=== PATIENT | female | born 1995 | race Two or more races ===

== ENCOUNTER 2016-07-18 18:22 | Emergency (ER) | payer BC, OTHER ==
[2016-07-18] MEDS ORDERED: DIPHENHYDRAMINE HCL 25 MG CAPSULE PO ONE (18:26)
--- NOTE | 2016-07-18 18:29 | ER Document Report ---
ED Medical Screen (RME) - General Stated Complaint: SWOLLEN RIGHT FOOT,RIGHT HAND PAIN Mode of Arrival: Ambulatory Information source: Patient Notes: pt presents with c/o swelling to right wrist, ankle, right side of face for 2 days. No obvious facial swelling noted. Denies injuries. Denies injury/trauma. Reports she thinks it is due to her allergies. Denies other symptoms. I have greeted and performed a rapid initial assessment of this patient. A comprehensive ED assessment and evaluation of the patient, analysis of test results and completion of the medical decision making process will be conducted by additional ED providers. TRAVEL OUTSIDE OF THE [place] IN LAST 30 DAYS: No - Related Data Allergies/Adverse Reactions: No Known Allergies Allergy (Verified 05/25/14 15:33) Past Medical History Pulmonary Medical History: Reports: Hx Asthma - Immunizations Hx Diphtheria, Pertussis, Tetanus Vaccination: Yes
[2016-07-18] MEDS ORDERED: DIPH/PERTUSS(ACELL)/TETANUS VAC/PF 0.5 ML SYR (>=10YO) IM ONE (22:25)
[2016-07-18 23:08] LABS: AMORPHOUS SEDIMENT,URINE TRACE /HPF; APPEARANCE,URINE CLOUDY; BILIRUBIN,URINE NEGATIVE (NEGATIVE); GLUCOSE, URINE NEGATIVE (NEGATIVE); KETONES,URINE NEGATIVE (NEGATIVE); LEUKOCYTE ESTERASE,URINE MODERATE (NEGATIVE); NITRITE,URINE NEGATIVE (NEGATIVE); PROTEIN,URINE NEGATIVE (NEGATIVE); URINE SPECIFIC GRAVITY 1.011
[2016-07-18 23:17] LABS: ABSOLUTE BASOPHILS # (AUTO) 0.1 10^3/uL (0.0-0.2); ABSOLUTE EOSINOPHILS # (AUTO) 0.3 10^3/uL (0.0-0.6); ABSOLUTE LYMPHOCYTES (AUTO) 1.9 10^3/uL (0.5-4.7); ABSOLUTE MONOCYTES (AUTO) 0.5 10^3/uL (0.1-1.4); ABSOLUTE NEUT (AUTO) 2.9 10^3/uL (1.7-8.2); EOSINOPHILS % (AUTO) 4.9 % (0-6); HEMATOCRIT 36.7 % (36.0-47.0); HEMOGLOBIN 12.7 g/dL (12.0-15.5); HGB HCT DIFFERENCE 1.4; MEAN CORPUSCULAR HEMOGLOBIN 30.3 pg (27.0-33.4); MEAN CORPUSCULAR HGB CONC 34.6 g/dL (32.0-36.0); MEAN CORPUSCULAR VOLUME 87 fl (80-97); MONOCYTES % (AUTO) 8.7 % (3-13); RED CELL DISTRIBUTION WIDTH 13.2 % (11.5-14.0); SEGMENTED NEUTROPHILS % (AUTO) 51.4 % (42-78); WHITE BLOOD COUNT 5.6 10^3/uL (4.0-10.5)
[2016-07-18 23:20] LABS: URINE BARBITURATES SCREEN NEGATIVE; URINE METHADONE SCREEN NEGATIVE; URINE OPIATES LOW UNCONFIRMED POSITIVE; URINE PHENCYCLIDINE SCREEN NEGATIVE
[2016-07-18 23:53] LABS: ALANINE AMINOTRANSFERASE 19 U/L (9-52); ALBUMIN 3.7 g/dL (3.5-5.0); ALKALINE PHOSPHATASE 55 U/L (38-126); ANION GAP 9 (5-19); ASPARTATE AMINO TRANSFERASE 21 U/L (14-36); BILIRUBIN,DIRECT 0.2 mg/dL (0.0-0.4); BILIRUBIN,TOTAL 0.6 mg/dL (0.2-1.3); BLOOD UREA NITROGEN 10 mg/dL (7-20); CALCIUM 9.3 mg/dL (8.4-10.2); CARBON DIOXIDE 27 mmol/L (22-30); CHLORIDE 106 mmol/L (98-107); CREATININE RESULT 0.57 mg/dL (0.52-1.25); GLUCOSE 107 mg/dL (75-110); POTASSIUM 4.4 mmol/L (3.6-5.0); TOTAL PROTEIN 6.7 g/dL (6.3-8.2)
--- NOTE | 2016-07-19 00:16 | ER Document Report ---
ED General - General Chief Complaint: Hand Swelling Stated Complaint: SWOLLEN RIGHT FOOT,RIGHT HAND PAIN Time seen by provider: 00:16 Mode of Arrival: Ambulatory Information source: Patient TRAVEL OUTSIDE OF THE [place] IN LAST 30 DAYS: No - HPI Patient complains to provider of: painful swelling to bilateral hands and feet, mainly right hand, dysuria Onset: Other - 2-3 days Onset/Duration: Gradual, Persistent Quality of pain: Achy, Fullness Severity: Moderate Pain Level: 3 Exacerbated by: Movement Relieved by: Denies Similar symptoms previously: No Recently seen / treated by doctor: No Notes: Patient is a 21-year-old female who presents to the emergency room complaining of right hand and foot swelling is been going on for the past few days, she states she's had left foot swelling over the past few days but that has since resolved, she denies any injury, does reported this achy and painful, no history of similar symptoms previously, she denies any fever or chills, no nausea, vomiting or diarrhea, last bowel movement was proximally one week ago which is typical for patient, she denies painful urination but does report frequency with urination, patient has a history of mental illness, has been taking Celexa and Klonopin for the past 1-1/2 months, 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, but reports she has not used any in the past 2 months, does admit to using marijuana on occasion - Related Data Allergies/Adverse Reactions: No Known Allergies Allergy (Verified 07/18/16 18:27) Past Medical History - General Information source: Patient - Social History Smoking Status: Current Every Day Smoker Chew tobacco use (# tins/day): No Frequency of alcohol use: None Drug Abuse: None Family History: Reviewed & Not Pertinent Pulmonary Medical History: Reports: Hx Asthma Renal/ Medical History: Denies: Hx Peritoneal Dialysis - Immunizations Hx Diphtheria, Pertussis, Tetanus Vaccination: Yes Review of Systems - Review of Systems Constitutional: No symptoms reported EENT: No symptoms reported Cardiovascular: No symptoms reported Respiratory: No symptoms reported Gastrointestinal: No symptoms reported Genitourinary: No symptoms reported Female Genitourinary: No symptoms reported Musculoskeletal: See HPI Skin: No symptoms reported Hematologic/Lymphatic: No symptoms reported Neurological/Psychological: No symptoms reported Physical Exam - Vital signs Vitals: Temp Pulse Resp BP Pulse Ox 98.2 F 86 16 105/59 L 96 07/18/16 18:27 07/18/16 18:27 07/18/16 18:27 07/18/16 18:27 07/18/16 18:27 Interpretation: Normal - General General appearance: Appears well, Alert - HEENT Head: Normocephalic, Atraumatic Eyes: Normal Pupils: PERRL - Respiratory Respiratory status: No respiratory distress Chest status: Nontender Breath sounds: Normal Chest palpation: Normal - Cardiovascular Rhythm: Regular Heart sounds: Normal auscultation Murmur: No - Abdominal Inspection: Normal Distension: No distension Bowel sounds: Normal Tenderness: Nontender Organomegaly: No organomegaly - Back Back: Normal, Nontender - Extremities General upper extremity: Normal ROM, Normal temperature General lower extremity: Nontender, Normal temperature, Normal weight bearing. No: Vee's sign Forearm: Other - On the left forearm there is brought and fresh appearing tattooing, several words are written on the ventral portion of the forearm, the wrist and the dorsal portion of the hand, there is no erythema or drainage, distal sensation and motor is intact with 2+ radial pulses and brisk capillary refill Hand: Other - Right hand with mild swelling, mild discoloration consistent with ecchymosis, several small scabbed puncture wounds, in the right antecubital space there are several ecchymotic and scabbed lesions consistent with IV punctures or IV track rangel, distal sensation and motor is intact with 2+ radial pulses and brisk capillary refill Foot: Normal - Neurological Neuro grossly intact: Yes Cognition: Normal Orientation: AAOx4 Ellie Coma Scale Eye Opening: Spontaneous Ellie Coma Scale Verbal: Oriented Ellie Coma Scale Motor: Obeys Commands [place] Coma Scale Total: 15 Speech: Normal Cranial nerves: Other - Patient has a slight right mouth droop, has piercings to left portion of the mouth, mother reports that the mouth droop is chronic and patient's baseline Motor strength normal: LUE, RUE, LLE, RLE Sensory: Normal - Psychological Associated symptoms: Normal mood, Flat affect - Skin Skin Temperature: Warm Skin Moisture: Dry Skin Color: Normal Course - Re-evaluation Re-evalutation: 07/19/16 01:00 Lab and imaging findings were discussed with patient and mother at bedside, she was placed on antibiotics for treatment of urinary tract infection, advised that a hepatitis panel was sent out, she was also advised to follow-up with her primary care provider in the next 1-2 days or return if symptoms worsen, patient and mother acknowledge understanding and agreement with this plan - Vital Signs Vital signs: Temp Pulse Resp BP Pulse Ox 97.9 F 70 18 124/72 98 07/19/16 01:24 07/19/16 01:24 07/19/16 01:24 07/19/16 01:24 07/19/16 01:24 - Laboratory Result Diagrams: 07/18/16 23:05 07/18/16 23:05 Laboratory results interpreted by me: 07/18/16 21:50 Urine Urobilinogen 2.0 H Ur Leukocyte Esterase MODERATE H - Diagnostic Test Radiology reviewed: Image reviewed, Reports reviewed Discharge - Discharge Clinical Impression: Peripheral edema Urinary tract infection Qualifiers: Urinary tract infection type: site unspecified Hematuria presence: without hematuria Qualified Code(s): N39.0 - Urinary tract infection, site not specified Condition: Stable Disposition: HOME, SELF-CARE Instructions: Urinary Tract Infection ([facility]), Cephalexin ([facility]), Edema, Peripheral ([facility]) Additional Instructions: Follow up with your primary care provider in one to 2 days. Return to the emergency room immediately if symptoms worsen or any additional concerns. Prescriptions: Cephalexin Monohydrate [Keflex 500 mg Capsule] 500 mg PO BID #20 capsule Referrals: KATIE RASHEED MD [Primary Care Provider] - Follow up as needed
[2016-07-19] MEDS ORDERED: CEPHALEXIN 500 MG CAPSULE PO ONE (00:59)
[2016-07-19 01:27] VITALS: BP 124/72
== END 2016-07-19 01:37 | disposition home or self-care (01) ==
LOC: ER 18:22
DX: N39.0 Urinary tract infection, site not specified (principal); R60.0 Localized edema; M79.89 Other specified soft tissue disorders; M79.641 Pain in right hand; Z79.899 Other long term (current) drug therapy; F17.200 Nicotine dependence, unspecified, uncomplicated
CPT/HCPCS: 36415; 80053; 80074; 80307; 81001; 81025; 85025; 90471; 90715; 99283

== ENCOUNTER 2018-06-22 17:36 | Emergency (ER) | payer OTHER ==
[2018-06-22 21:39] VITALS: BP 102/69
--- NOTE | 2018-06-22 22:13 | ER Document Report ---
Entered by MARIELA SWIFT SCRIBE 06/22/181941 Acting as scribe for:ELI PEREZ DO ED Substance Abuse / Acc. OD - General Chief Complaint: Possible Overdose Stated Complaint: POSSIBLE OVERDOSE Time Seen by Provider: 06/22/18 17:40 Primary Care Provider: KATIE RASHEED MD [Primary Care Provider] - Follow up in 3-5 days ( ) Notes: 23-year-old female [facility] pulse ox [facility]%, cyanotic, with minimal respirations. [place] fire department administered 2 mg of intranasal Narcan, EMS put an IO in her left tibia and gave 2 more mg of Narcan and the patient began to arouse. Patient states that she "snorted 2 bags of heroin" today. Patient states this was not an attempted suicide. TRAVEL OUTSIDE OF THE [place] IN LAST 30 DAYS: No - Related Data Allergies/Adverse Reactions: No Known Allergies Allergy (Verified 07/18/16 18:27) Past Medical History - General Information source: Patient - Social History Smoking Status: Current Every Day Smoker Frequency of alcohol use: None Drug Abuse: Heroin, Marijuana Lives with: Family Family History: Reviewed & Not Pertinent Patient has suicidal ideation: No Patient has homicidal ideation: No Pulmonary Medical History: Reports: Hx Asthma Surgical Hx: Negative - Immunizations Hx Diphtheria, Pertussis, Tetanus Vaccination: Yes Review of Systems - Review of Systems Constitutional: See HPI, Other - overdose of heroin EENT: No symptoms reported Cardiovascular: No symptoms reported Respiratory: No symptoms reported Gastrointestinal: No symptoms reported Genitourinary: No symptoms reported Female Genitourinary: No symptoms reported Musculoskeletal: No symptoms reported Skin: No symptoms reported Hematologic/Lymphatic: No symptoms reported Neurological/Psychological: See HPI, Numbness - lower extremities -: Yes All other systems reviewed and negative Physical Exam - Vital signs Vitals: Temp Pulse Resp BP Pulse Ox 98.8 F 80 24 H 123/92 H 100 06/22/18 17:41 06/22/18 17:41 06/22/18 17:41 06/22/18 17:41 06/22/18 17:41 Interpretation: Normal - General General appearance: Alert In distress: None - HEENT Head: Normocephalic, Atraumatic Eyes: Normal Pupils: PERRL - Respiratory Respiratory status: No respiratory distress Chest status: Nontender Breath sounds: Normal Chest palpation: Normal - Cardiovascular Rhythm: Regular Heart sounds: Normal auscultation Murmur: No - Abdominal Inspection: Normal Distension: No distension Bowel sounds: Normal Tenderness: Nontender Organomegaly: No organomegaly - Back Back: Normal, Nontender - Extremities General upper extremity: Normal inspection, Nontender, Normal color, Normal ROM, Normal temperature General lower extremity: Normal inspection, Nontender, Normal color, Normal ROM, Normal temperature, Normal weight bearing. No: Vee's sign - Neurological Neuro grossly intact: Yes Cognition: Normal Orientation: AAOx4 [place] Coma Scale Eye Opening: Spontaneous [place] Coma Scale Verbal: Oriented [place] Coma Scale Motor: Obeys Commands [place] Coma Scale Total: 15 Speech: Normal Motor strength normal: LUE, RUE, LLE, RLE Sensory: Normal - Psychological Associated symptoms: Normal affect, Normal mood - Skin Skin Temperature: Cool Skin Moisture: Diaphoretic Skin Color: Pale Course - Re-evaluation Re-evalutation: 06/22/18 22:12 Patient presents after being found in the car after heroin overdose. Patient is not suicidal. She is not trying to hurt herself. Patient was given Narcan prior to arrival. She has been watched in the emergency department for 4 hours. She is taking p.o., ambulating, and would like to go home. She does not want to stay to talk to anyone for mental health. Feels well. No complaints. Stable for discharge. Given Narcan prescription. - Vital Signs Vital signs: Temp Pulse Resp BP Pulse Ox 98.8 F 80 12 102/69 100 06/22/18 17:41 06/22/18 17:41 06/22/18 21:32 06/22/18 21:32 06/22/18 21:32 Discharge - Discharge Clinical Impression: Opiate overdose Qualifiers: Encounter type: initial encounter Injury intent: accidental or unintentional Qualified Code(s): T40.601A - Poisoning by unspecified narcotics, accidental (unintentional), initial encounter Condition: Stable Disposition: HOME, SELF-CARE Instructions: Instructions for Home Care Following a Drug Overdose ([facility]) Prescriptions: Naloxone HCl [Narcan] 4 mg NS PRN PRN #1 bottle PRN Reason: Referrals: KATIE RASHEED MD [Primary Care Provider] - Follow up in 3-5 days ( ) Scribe Attestation: 06/22/18 22:13 I personally performed the services described in the documentation, reviewed and edited the documentation which was dictated to the scribe in my presence, and it accurately records my words and actions. I personally performed the services described in the documentation, reviewed and edited the documentation which was dictated to the scribe in my presence, and it accurately records my words and actions.
--- NOTE | 2018-06-23 22:18 | EKG REPORT ---
SEVERITY:- OTHERWISE NORMAL ECG - SINUS RHYTHM BORDERLINE RIGHT AXIS DEVIATION : Confirmed by: Marvel Martinez 23-Jun-2018 22:17:57
== END 2018-06-22 21:40 | disposition home or self-care (01) ==
LOC: ER 17:36
DX: T40.1X1A Poisoning by heroin, accidental (unintentional), initial encounter (principal); Y92.810 Car as the place of occurrence of the external cause; F12.10 Cannabis abuse, uncomplicated; F17.200 Nicotine dependence, unspecified, uncomplicated; J45.909 Unspecified asthma, uncomplicated; R20.0 Anesthesia of skin
CPT/HCPCS: 93005; 93010; 99284

== ENCOUNTER 2019-01-30 21:56 | Emergency (ER) | payer SELFPAY ==
[2019-01-30] MEDS ORDERED: ASPIRIN 81 MG TABLET, CHEWABLE PO ONE (22:18)
[2019-01-30 23:18] LABS: ABSOLUTE EOSINOPHILS # (AUTO) 0.2 10^3/uL (0.0-0.6); ABSOLUTE LYMPHOCYTES (AUTO) 1.6 10^3/uL (0.5-4.7); ABSOLUTE MONOCYTES (AUTO) 0.3 10^3/uL (0.1-1.4); ABSOLUTE NEUT (AUTO) 3.1 10^3/uL (1.7-8.2); BASOPHILS % (AUTO) 0.7 % (0-2); HEMATOCRIT 39.6 % (36.0-47.0); HEMOGLOBIN 13.5 g/dL (12.0-15.5); LYMPHOCYTES % (AUTO) 30.5 % (13-45); MEAN CORPUSCULAR HEMOGLOBIN 29.7 pg (27.0-33.4); MEAN CORPUSCULAR HGB CONC 34.2 g/dL (32.0-36.0); MEAN CORPUSCULAR VOLUME 87 fl (80-97); MONOCYTES % (AUTO) 6.1 % (3-13); PLATELET COUNT 261 10^3/uL (150-450); RED BLOOD COUNT 4.56 10^6/uL (3.72-5.28); RED CELL DISTRIBUTION WIDTH 13.1 % (11.5-14.0); SEGMENTED NEUTROPHILS % (AUTO) 58.7 % (42-78); TOTAL CELLS COUNTED % (AUTO) 100 %; WHITE BLOOD COUNT 5.4 10^3/uL (4.0-10.5)
[2019-01-30 23:32] LABS: ALBUMIN 3.8 g/dL (3.5-5.0); ALKALINE PHOSPHATASE 63 U/L (38-126); ANION GAP 6 (5-19); ASPARTATE AMINO TRANSFERASE 30 U/L (14-36); BILIRUBIN,DIRECT 0.1 mg/dL (0.0-0.4); BILIRUBIN,TOTAL 0.5 mg/dL (0.2-1.3); BLOOD UREA NITROGEN 12 mg/dL (7-20); CALCIUM 9.2 mg/dL (8.4-10.2); CARBON DIOXIDE 33 mmol/L (22-30); CHLORIDE 99 mmol/L (98-107); CREATINE KINASE 78 U/L (30-135); GLUCOSE 143 mg/dL (75-110); POTASSIUM 4.7 mmol/L (3.6-5.0); TOTAL PROTEIN 7.1 g/dL (6.3-8.2)
--- NOTE | 2019-01-30 23:32 | RADIOLOGY REPORT (SQ) ---
EXAM DESCRIPTION: XR CHEST 2 VIEWS COMPLETED DATE/TME: 01/30/2019 00:00 CLINICAL HISTORY: 23 years, Female, chest pain and diff breathing x 1 wk COMPARISON: None. NUMBER OF VIEWS: Two TECHNIQUE: Frontal and lateral radiographs of the chest were obtained. LIMITATIONS: None. FINDINGS: Cardiac and mediastinal contours are normal in appearance. Lungs are clear. No pleural effusion or pneumothorax. IMPRESSION: No acute disease. copyright 2010 [employer]- All Rights Reserved
[2019-01-31] MEDS ORDERED: DEXAMETHASONE SOD PHOS INJ 10 MG/1 ML VIAL IM ONE (01:18)
[2019-01-31] MEDS ORDERED: DIPHENHYDRAMINE HCL 50 MG/ML VIAL IM ONE (01:18)
[2019-01-31] MEDS ORDERED: KETOROLAC TROMETHAMINE 60 MG/2 ML SDV IM ONE (01:18)
[2019-01-31] MEDS ORDERED: ALBUTEROL SULFATE HFA (90 MCG/PUFF) 8 GM MDI (1 MDI/ER DISP) IH ONE (01:18)
[2019-01-31] MEDS ORDERED: PROCHLORPERAZINE EDISYLATE INJ 10 MG/2 ML VIAL IM ONE (01:18)
--- NOTE | 2019-01-31 01:27 | ER Document Report ---
ED General - General Chief Complaint: Chest Pain Stated Complaint: CHEST PAIN Time Seen by Provider: 01/31/19 01:05 Primary Care Provider: KATIE RASHEED MD [Primary Care Provider] - Follow up as needed Notes: 23 year old female with a remote history of asthma and a history of twice monthly headaches presents emergency department complaining of shortness of breath and chest pain for the past week. Denies any cough, denies any dyspnea on exertion or change when she walks. States that the pain is only there when she takes deep breath and it is an aching throbbing type of pain and it also just feels like she cannot take a full deep breath. She has never had anything like this before. She also complains of a throbbing headache to her bilateral temples for the past few days. States she gets headaches like these twice a month. Is associated with photophobia but denies any phonophobia, nausea, vomiting, diarrhea, fevers, blurry vision, neck pain or trauma. Admits occasionally injecting heroin, last time she used was over a week ago. TRAVEL OUTSIDE OF THE [place] IN LAST 30 DAYS: No - Related Data Allergies/Adverse Reactions: No Known Allergies Allergy (Verified 07/18/16 18:27) Past Medical History - General Information source: Patient - Social History Smoking Status: Current Every Day Smoker Chew tobacco use (# tins/day): No Frequency of alcohol use: None Drug Abuse: Heroin Family History: Reviewed & Not Pertinent Patient has suicidal ideation: No Patient has homicidal ideation: No Pulmonary Medical History: Reports: Hx Asthma Renal/ Medical History: Denies: Hx Peritoneal Dialysis - Immunizations Hx Diphtheria, Pertussis, Tetanus Vaccination: Yes Review of Systems - Review of Systems Constitutional: No symptoms reported EENT: See HPI - Photophobia Cardiovascular: See HPI Respiratory: See HPI Gastrointestinal: No symptoms reported Genitourinary: No symptoms reported Neurological/Psychological: See HPI - Headache -: Yes All other systems reviewed and negative Physical Exam - Vital signs Vitals: Temp Pulse Resp BP Pulse Ox 97.7 F 67 16 118/54 L 99 01/30/19 22:06 01/30/19 22:06 01/30/19 22:06 01/30/19 22:06 01/30/19 22:06 Interpretation: Normal - Notes Notes: GENERAL: Alert, interacts well. Mildly photophobic, however lights are on in the TV is on quite loudly and it does not seem to be bothering her. HEAD: Normocephalic, atraumatic EYES: Pupils equal, round and reactive to light, extraocular movements intact. ENT: Oral mucosa moist, tongue midline. Nares patent, no nasal septal hematoma, TMs intact. NECK: Full range of motion, supple, trachea midline. LUNGS: Mild expiratory wheezes, no acute distress. HEART: Regular rate and rhythm, no murmurs, gallops, rubs. ABDOMEN: Soft, nontender, nondistended, bowel sounds present in all 4 quadrants. EXTREMITIES: Moves all 4 extremities spontaneously, no edema, radial and dorsalis pedis pulses 2/4 bilaterally. No cyanosis. NEUROLOGICAL: Alert and oriented x3, normal speech, cranial nerves II through XII grossly intact, biceps and patellar DTRs 2+ bilaterally. PSYCH: Normal mood, normal affect. SKIN: Warm, Dry, bruising and track rangel noted to the bilateral upper extremities, no surrounding erythema. Course - Re-evaluation Re-evalutation: 01/31/19 01:27 CBC unremarkable, CMP shows elevated glucose of 143, this is nonfasting, otherwise unremarkable, troponin is undetectable, chest x-ray unremarkable, EKG is nonischemic. Suspect pleurisy as well as migraine, no evidence of meningitis, no risk factors for PE, no tachycardia. Patient has not had sex with a man in over 6 months, no need to check test. Patient will be treated with Toradol, Compazine, Benadryl and Decadron as well as an albuterol inhaler. Discharged home on anti-inflammatories. Counseled on not using drugs, admits to using heroin over a week ago. Encouraged to stay clean and not use any more injectable drugs. 01/31/19 01:28 - Vital Signs Vital signs: Temp Pulse Resp BP Pulse Ox 97.7 F 67 16 118/54 L 99 01/30/19 22:06 01/30/19 22:06 01/30/19 22:06 01/30/19 22:06 01/30/19 22:06 - Laboratory Result Diagrams: 01/30/19 22:50 01/30/19 22:50 Laboratory results interpreted by me: 01/30/19 22:50 Carbon Dioxide 33 H Glucose 143 H - EKG Interpretation by Me Additional EKG results interpreted by me: 01/31/19 01:28 EKG shows sinus bradycardia cardia at a rate of 56, normal axis, normal intervals, no ST segment elevations or depressions, there are T wave inversions noted in V2 and aVL per my interpretation. Discharge - Discharge Clinical Impression: Pleuritic chest pain, Temporal headache, Wheezing Condition: Stable Disposition: HOME, SELF-CARE Additional Instructions: Please return for worsening headache, fever, neck pain, blurry vision or any new or concerning symptoms. Pleurisy Your chest pain has been diagnosed as pleuritis (pleurisy). This is an inflammation of the surface of the lung tissue. It can be caused by a virus or, occasionally, old scar tissue. It is painful but, for the most part, not a serious problem. This pain is usually made worse by deep breathing, coughing, or sudden movements of the upper body or arms. The treatment is relief of symptoms. It includes rest, antiinflammatory medication, and pain medicine. Resolution of the pain is usually rapid once antiinflammatory medication is started. Warning signs of a more serious problem include: a fever, shortness of breath, pain that radiates to your jaw, shoulders or arms, or coughing up bloody sputum. If any of these symptoms occur, call the physician at once. Please use ibuprofen (Motrin or Advil) 600-800 mg every 8 hours as needed for pain or fever. You may also use acetaminophen (Tylenol) 1000 mg every 4-6 hours as needed for pain or fever. Please be aware that many medications contain acetaminophen, do not exceed a total of 1000 mg of acetaminophen every 6 hours. Please use the inhaler 2 puffs every 4 hours as needed for wheezing or pain in your chest or shortness of breath. Prescriptions: Prednisone [Deltasone 20 mg Tablet] 2 tab PO DAILY 4 Days tablet Forms: Return to Work Referrals: KATIE RASHEED MD [Primary Care Provider] - Follow up as needed
[2019-01-31 02:13] VITALS: BP 120/60
--- NOTE | 2019-01-31 07:54 | EKG REPORT ---
SEVERITY:- NORMAL ECG - SINUS RHYTHM : Confirmed by: Bebo Oglesby MD 31-Jan-2019 07:54:20
== END 2019-01-31 02:11 | disposition home or self-care (01) ==
LOC: ER 21:56
DX: R07.81 Pleurodynia (principal); R51 Headache; J45.909 Unspecified asthma, uncomplicated; R06.02 Shortness of breath; F11.10 Opioid abuse, uncomplicated
CPT/HCPCS: 93005; 99285; 96372; 36415; 82550; 85025; 80053; 84484; 71046; 93010; J1200; J1885; J0780; J1100; J3490

== ENCOUNTER 2019-04-03 09:45 | Emergency (ER) | payer SELFPAY ==
[2019-04-03] MEDS ORDERED: IPRATROPIUM/ALBUTEROL 0.5-2.5 MG/3 ML AMPUL NEB ONE (10:40)
[2019-04-03] MEDS ORDERED: ONDANSETRON 4 MG TAB.RAPDIS PO ONE (10:40)
--- NOTE | 2019-04-03 10:41 | ER Document Report ---
HPI - HPI Patient complains to provider of: Cold symptoms Time Seen by Provider: 04/03/19 10:38 Onset/Duration: Persistent Quality of pain: Achy Pain Level: 3 Context: Patient presents complaining of cough congestion and sore throat for the past 3 days. Patient also complains of nausea. No fever, vomiting or diarrhea. Associated Symptoms: Nonproductive cough, Nausea, Rhinnorhea, Sore throat. denies: Chest pain, Chills, Earache, Fever, Headache, Vomiting Exacerbated by: Denies Relieved by: Denies Similar symptoms previously: Yes Recently seen / treated by doctor: No - ROS ROS below otherwise negative: Yes Systems Reviewed and Negative: Yes All other systems reviewed and negative - CONSTITUTIONAL Constitutional: DENIES: Fever, Chills - EENT EENT: REPORTS: Sore Throat, Nasal Drainage-Clear, Congestion - NEURO Neurology: DENIES: Headache - RESPIRATORY Respiratory: REPORTS: Coughing. DENIES: Trouble Breathing - GASTROINTESTINAL Gastrointestinal: DENIES: Abdominal Pain, Nausea, Patient vomiting, Diarrhea - REPRODUCTIVE Reproductive: DENIES: : - MUSCULOSKELETAL Musculoskeletal: DENIES: Extremity pain, Back Pain, Neck Pain - DERM Skin Color: Normal Skin Problems: None Past Medical History - General Information source: Patient - Social History Smoking Status: Current Every Day Smoker Chew tobacco use (# tins/day): No Frequency of alcohol use: None Drug Abuse: None Occupation: Foodservice Family History: Reviewed & Not Pertinent Patient has suicidal ideation: No Patient has homicidal ideation: No Pulmonary Medical History: Reports: Hx Asthma Renal/ Medical History: Denies: Hx Peritoneal Dialysis Surgical Hx: Negative - Immunizations Hx Diphtheria, Pertussis, Tetanus Vaccination: Yes Vertical Provider Document - CONSTITUTIONAL Agree With Documented VS: Yes Exam Limitations: No Limitations General Appearance: WD/WN, No Apparent Distress - INFECTION CONTROL TRAVEL OUTSIDE OF THE [place] IN LAST 30 DAYS: No - HEENT HEENT: Atraumatic, Normocephalic, Pharyngeal Tenderness, Pharyngeal Erythema. negative: Pharyngeal Exudate, Tympanic Membrane Red Notes: clear rhinorrhea - NECK Neck: Normal Inspection, Supple. negative: Lymphadenopathy-Left, Lymphadenopathy-Right - RESPIRATORY Respiratory: No Respiratory Distress, Chest Non-Tender. negative: Rales, Rhonchi, Wheezing - CARDIOVASCULAR Cardiovascular: Regular Rate, Regular Rhythm, No Murmur - BACK Back: Normal Inspection - MUSCULOSKELETAL/EXTREMETIES Musculoskeletal/Extremeties: VIRAJ MORGAN - NEURO Level of Consciousness: Awake, Alert, Appropriate Motor/Sensory: No Motor Deficit - DERM Integumentary: Warm, Dry, No Rash Course - Re-evaluation Re-evalutation: 04/03/19 Respirations even unlabored. Chest x-ray reviewed, no concern for pneumonia or pneumothorax. Patient nontoxic in appearance. Good return precautions discussed. Patient verbalized understanding and is agreeable with discharge pl an of care. - Vital Signs Vital signs: Temp Pulse Resp BP Pulse Ox 98.1 F 87 16 139/88 H 100 04/03/19 10:34 04/03/19 10:34 04/03/19 10:34 04/03/19 10:34 04/03/19 10:34 - Laboratory Laboratory results interpreted by me: 04/03/19 12:04 Labs- Entire Visit 04/03/19 11:02 Group A Strep Rapid NEGATIVE - Diagnostic Test Radiology reviewed: Reports reviewed Discharge - Discharge Clinical Impression: Sore throat Upper respiratory infection Qualifiers: URI type: unspecified URI Qualified Code(s): J06.9 - Acute upper respiratory infection, unspecified Condition: Stable Disposition: HOME, SELF-CARE Instructions: Sore Throat ([facility]), Upper Respiratory Illness ([facility]) Additional Instructions: Return immediately for any new or worsening symptoms Followup with your primary care provider, call tomorrow to make a followup appointment Throat culture is pending, we will call if you need any different treatment Prescriptions: Guaifenesin/Pseudoephedrne HCl [Mucinex D ER 1,200-120 mg Tab] 1 each PO Q12 PRN #12 tab.er.12h PRN Reason: Naproxen [Naprosyn 250 Nmg Tablet] 1 tab PO BID #14 tablet Forms: Return to Work Referrals: KATIE RASHEED MD [Primary Care Provider] - Follow up tomorrow
--- NOTE | 2019-04-03 11:42 | RADIOLOGY REPORT (SQ) ---
EXAM DESCRIPTION: CHEST 2 VIEWS COMPLETED DATE/TIME: 04/03/2019 11:19 am REASON FOR STUDY: cough COMPARISON: 01/30/2019 TECHNIQUE: Frontal and lateral radiographic views of the chest acquired. NUMBER OF VIEWS: Two view. LIMITATIONS: None. FINDINGS: LUNGS AND PLEURA: No opacities, masses or pneumothorax. No pleural effusion. MEDIASTINUM AND HILAR STRUCTURES: No masses or contour abnormalities. HEART AND VASCULAR STRUCTURES: Heart normal size. No evidence for failure. BONES: No acute findings. HARDWARE: None in the chest. OTHER: No other significant finding. IMPRESSION: NO SIGNIFICANT RADIOGRAPHIC FINDING IN THE CHEST. TECHNICAL DOCUMENTATION: JOB ID: [id number] [employer]- All Rights Reserved Reading location - IP/workstation name: [email or web address]
[2019-04-03 12:22] VITALS: BP 112/49
== END 2019-04-03 12:22 | disposition home or self-care (01) ==
LOC: ER 09:45
DX: J06.9 Acute upper respiratory infection, unspecified (principal); R05 Cough; J02.9 Acute pharyngitis, unspecified; R11.0 Nausea; J34.89 Other specified disorders of nose and nasal sinuses; F17.200 Nicotine dependence, unspecified, uncomplicated; J45.909 Unspecified asthma, uncomplicated
CPT/HCPCS: 94640; 99283; 87070; 87880; 71046; S0119; J7620

== ENCOUNTER 2019-11-01 20:40 | Emergency (ER) | payer SELFPAY ==
[2019-11-01 21:16] VITALS: BP 111/59
[2019-11-01] MEDS ORDERED: DIPHENHYDRAMINE HCL 50 MG CAPSULE PO ONE (22:23)
[2019-11-01] MEDS ORDERED: SULFAMETHOXAZOLE/TRIMETHOPRIM 800-160 MG TABLET PO ONE (22:23)
--- NOTE | 2019-11-01 22:27 | ER Document Report ---
ED General - General Chief Complaint: Insect Bite Stated Complaint: POSSIBLE BUG BITE ON FOOT Primary Care Provider: KATIE RASHEED MD [Primary Care Provider] - Follow up as needed Notes: Patient is a 24-year-old female with no reported past medical history presents to the emergency department with chief complaint of swollen area to the left dorsal foot. [place] [employer] [place]formerly [employer] She thinks she might of been bitten by a spider. She states that she saw some spiders near the area where she was working but did not see anything bite her specifically. She states yesterday the area was much worse. She presents with a picture on her phone showing significant improvement from yesterday to today. She states the area is still slightly swollen and tender to palpation. Denies any drainage, expanding cellulitis or proximal streaking. No fever, chills or night sweats. TRAVEL OUTSIDE OF THE [place] IN LAST 30 DAYS: No - Related Data Allergies/Adverse Reactions: No Known Allergies Allergy (Verified 04/03/19 10:34) Past Medical History - Social History Smoking Status: Current Every Day Smoker Chew tobacco use (# tins/day): No Frequency of alcohol use: None Drug Abuse: None Family History: Reviewed & Not Pertinent Pulmonary Medical History: Reports: Hx Asthma Renal/ Medical History: Denies: Hx Peritoneal Dialysis - Immunizations Hx Diphtheria, Pertussis, Tetanus Vaccination: Yes Review of Systems - Review of Systems Notes: As per HPI otherwise negative Physical Exam - Vital signs Vitals: Temp Pulse Resp BP Pulse Ox 98.5 F 75 16 111/59 L 100 11/01/19 21:15 11/01/19 21:15 11/01/19 21:15 11/01/19 21:15 11/01/19 21:15 - General General appearance: Appears well, Alert In distress: None - Respiratory Respiratory status: No respiratory distress Chest status: Nontender Breath sounds: Normal Chest palpation: Normal - Cardiovascular Rhythm: Regular Heart sounds: Normal auscultation - Extremities Foot: Other - Slight tenderness with faint erythema to the mid dorsum of the left foot. Tender to the same area. No expanding cellulitis or proximal streaking. No proximal regional lymphadenopathy. Full passive range of motion of the foot. 2+ DP/PT of the foot. Good capillary refill distally. Gait is only slightly limited by pain. - Neurological Neuro grossly intact: Yes Cognition: Normal Orientation: AAOx4 - Psychological Associated symptoms: Normal affect, Normal mood - Skin Skin Temperature: Warm Skin Moisture: Dry Skin Color: Other - Normal except affected area of the foot as described Course - Re-evaluation Re-evalutation: 11/01/19 22:27 Patient with a history and physical consistent with a probable localized allergic reaction to possible insect envenomation or sting versus acute improving bacterial infection. She will take antihistamines as discussed, use ice and elevation and we will start on a short course of Bactrim. Counseled her regarding the importance of outpatient follow-up and advised she return here or any ER immediately with any new, persistent or worsening symptoms. She verbalized understood and agreed. Patient verbalized no chance of . - Vital Signs Vital signs: Temp Pulse Resp BP Pulse Ox 98.5 F 75 16 111/59 L 100 11/01/19 22:18 11/01/19 21:15 11/01/19 21:15 11/01/19 21:15 11/01/19 21:15 Discharge - Discharge Clinical Impression: Cellulitis Qualifiers: Site of cellulitis: unspecified site Qualified Code(s): L03.90 - Cellulitis, unspecified Local reaction to insect sting Qualifiers: Encounter type: initial encounter Injury intent: accidental or unintentional Qualified Code(s): T63.481A - Toxic effect of venom of other arthropod, accidental (unintentional), initial encounter Condition: Stable Disposition: HOME, SELF-CARE Instructions: Swollen Insect Bite or Sting ([facility]) Additional Instructions: Follow-up with your regular doctor in 2 to 3 days for reevaluation. Return here or any ER immediately with any new, persistent or worsening symptoms. Prescriptions: Sulfamethoxazole/Trimethoprim [Bactrim Ds Tablet] 1 each PO BID #14 tablet Referrals: KATIE RASHEED MD [Primary Care Provider] - Follow up as needed
== END 2019-11-01 22:30 | disposition home or self-care (01) ==
LOC: ER 20:40
DX: W57.XXXA Bitten or stung by nonvenomous insect and other nonvenomous arthropods, initial encounter (principal); L03.90 Cellulitis, unspecified; F17.200 Nicotine dependence, unspecified, uncomplicated; J45.909 Unspecified asthma, uncomplicated
CPT/HCPCS: 99281

== ENCOUNTER 2019-12-11 02:40 | Emergency (ER) | payer SELFPAY ==
--- NOTE | 2019-12-11 05:43 | ER Document Report ---
Entered by BLAKE SHARIF SCRIBE 12/11/19 0506 Acting as scribe for:JOHN LOPEZ IV, MD ED General - General Mode of Arrival: Ambulatory Information source: Patient TRAVEL OUTSIDE OF THE [place] IN LAST 30 DAYS: No <JOHN LOPEZ IV - Last Filed: 12/11/19 05:43> <JOSE VIRAMONTES - Last Filed: 12/11/19 08:40> - General Chief Complaint: Overdose Stated Complaint: BEHAVIORAL ISSUES Time Seen by Provider: 12/11/19 05:01 Primary Care Provider: KATIE RASHEED MD [Primary Care Provider] - Follow up as needed Notes: This 24 year old female patient brought in by [facility] presents to the ED today for medical clearance after an accidental heroin overdose that occurred prior to arrival. [facility] was called by the patient's family. Dr. Herndon has already consulted with the patient. Patient denies suicidal or homicidal ideation. (JOHN LOPEZ IV) - Related Data Allergies/Adverse Reactions: No Known Allergies Allergy (Verified 04/03/19 10:34) Past Medical History - General Information source: [facility] Records - Social History Smoking Status: Current Every Day Smoker Cigarette use (# per day): Yes Chew tobacco use (# tins/day): No Smoking Education Provided: No Frequency of alcohol use: None Drug Abuse: Heroin Family History: Reviewed & Not Pertinent Patient has suicidal ideation: No Patient has homicidal ideation: No Pulmonary Medical History: Reports: Hx Asthma - Immunizations Hx Diphtheria, Pertussis, Tetanus Vaccination: Yes <JOHN LOPEZ IV - Last Filed: 12/11/19 05:43> Review of Systems - Review of Systems Constitutional: See HPI, Other - Accidental heroin overdose EENT: No symptoms reported Cardiovascular: No symptoms reported Respiratory: No symptoms reported Gastrointestinal: No symptoms reported Genitourinary: No symptoms reported Female Genitourinary: No symptoms reported Musculoskeletal: No symptoms reported Skin: No symptoms reported Hematologic/Lymphatic: No symptoms reported Neurological/Psychological: See HPI. denies: Homicidal ideation, Suicidal ideation -: Yes All other systems reviewed and negative <JOHN LOPEZ IV - Last Filed: 12/11/19 05:43> Physical Exam - General General appearance: Other - Somnolent, but easily arousable and subsequently alert In distress: None - HEENT Head: Normocephalic, Atraumatic Eyes: Normal Pupils: PERRL - Respiratory Respiratory status: No respiratory distress Chest status: Nontender Breath sounds: Normal Chest palpation: Normal - Cardiovascular Rhythm: Regular Heart sounds: Normal auscultation Murmur: No Friction rub: No Gallop: None auscultated - Abdominal Inspection: Normal Distension: No distension Bowel sounds: Normal Tenderness: Nontender - Abdomen soft Organomegaly: No organomegaly - Back Back: Normal, Nontender - Extremities General upper extremity: Normal inspection General lower extremity: Normal inspection - Neurological Neuro grossly intact: Yes - Psychological Associated symptoms: Normal affect, Normal mood - Skin Skin Temperature: Warm Skin Moisture: Dry Skin Color: Normal <JOHN LOPEZ IV - Last Filed: 12/11/19 05:43> - Vital signs Vitals: Temp Pulse Resp BP Pulse Ox 101.3 F H 99 20 134/75 H 100 12/11/19 02:48 12/11/19 02:48 12/11/19 02:48 12/11/19 02:48 12/11/19 02:48 Course <JOHN LOPEZ IV - Last Filed: 12/11/19 05:43> - Laboratory Result Diagrams: 12/11/19 05:50 12/11/19 05:50 <JOSE VIRAMONTES - Last Filed: 12/11/19 08:40> - Re-evaluation Re-evalutation: 12/11/19 08:38 Patient was seen overnight primarily by Dr. John Lopez after what appears to be an accidental drug overdose. Her medical evaluation here has been negativ e. She is now awake and alert and drinking fluids without difficulty. She is able to stand and ambulate without assistance. She denies any suicidal/homicidal intent or any hallucinations at this time. She wishes to be discharged. I believe this is appropriate. She has been offered outpatient d rug detox resources. Findings, clinical impression and plan of treatment have been discussed with p atient/family. Understanding of current findings and recommendations has been acknowledged by them and there is agreement regarding disposition and follow-up. (JOSE VIRAMONTES) - Vital Signs Vital signs: Temp Pulse Resp BP Pulse Ox 98.7 F 99 20 134/75 H 100 12/11/19 05:46 12/11/19 02:48 12/11/19 02:48 12/11/19 02:48 12/11/19 02:48 - Laboratory Laboratory results interpreted by me: 12/11/19 12/11/19 12/11/19 05:50 05:50 06:10 Hct 35.6 L Seg Neutrophils % 79.2 H Sodium 136.4 L Anion Gap 3 L Glucose 123 H AST 40 H ALT 56 H Albumin 3.4 L Ur Leukocyte Esterase LARGE H - EKG Interpretation by Me Additional EKG results interpreted by me: 12/11/19 05:44 EKG obtained on 12/11/2019 at 0533 hrs. was interpreted by this MD. Findings: Normal sinus rhythm, rate 91, normal axis, P waves preceding QRS complexes, QRS complexes appear narrow, there are no obvious patterns of ST segment elevation or depression present to suggest acute myocardial ischemia or infarction. Impression: Normal sinus rhythm with nonspecific ST segments. (JOHN LOPEZ IV) Discharge <JOHN LOPEZ IV - Last Filed: 12/11/19 05:43> <JOSE VIRAMONTES - Last Filed: 12/11/19 08:40> - Discharge Clinical Impression: Accidental drug overdose Qualifiers: Encounter type: initial encounter Qualified Code(s): T50.901A - Poisoning by unspecified drugs, medicaments and biological substances, accidental (unintentional), initial encounter Condition: Stable Disposition: HOME, SELF-CARE Additional Instructions: Return to the Emergency Department without delay if any worse. HOME CARE INSTRUCTIONS & INFORMATION: Thank you for choosing us for your medical needs. We hope you're satisfied with the care you received. After you leave, you must properly care for your problem and, at the same time, observe its progress. Any condition can change. Some illnesses can change rapidly over hours or days. If your condition worsens, return to the Emergency Department or see your physician promptly. ABOUT YOUR X-RAYS AND EKG'S: If you had an EKG or X-rays taken, they have been read by the Emergency Physician. The X-rays and EKG's will also be read by a Radiologist or Motor Operator within 24 hours. If discrepancies are noted, you will be notified by telephone. Please be certain the ED has a correct telephone number & address where you can be reached. Also, realize that some fractures or abnormalities do not show up on initial X-rays. If your symptoms continue, see your physician. ABOUT YOUR LABORATORY TEST: If you had laboratory tests, the results have been reviewed by the Emergency Physician. Some test results (for example cultures) may not be available for several days. You will be contacted if any test result shows you need additional treatment. Please be certain the ED has a correct telephone number and address where you can be reached. ABOUT YOUR MEDICATIONS: You will receive instructions on how to take your medicine on the prescription label you receive. Additional information may be provided by the Pharmacy. If you have questions afterwards, call the ED for clarification or further instructions. Some prescribed medications may cause drowsiness. Do not perform tasks such as driving a car or operating machinery without consulting your Pharmacist. If you feel you need a refill of pain medication, your condition will need re-evaluation. Please do not call for a refill of any medication. ABOUT YOUR SIGNATURE: Signature of this document acknowledges to followin. Understanding that you received emergency treatment and that you may be released before al medical problems are known or treated. Please be certain the ED has a correct phone number & address where you can be reached. 2. Acknowledgement that you will arrange for follow-up care as recommended. 3. Authorization for the Emergency Physician to provide information to your follow-up Physician in order to maximize your care. AT ANY TIME, IF YOUR SYMPTOMS CHANGE SIGNIFICANTLY OR WORSEN OR YOU DEVELOP NEW SYMPTOMS, RETURN TO THE EMERGENCY DEPARTMENT IMMEDIATELY FOR RE-EVALUATION. OUR GOAL IS TO PROVIDE EXCELLENT MEDICAL CARE! WE HOPE THAT WE HAVE MET YOUR EXPECTATIONS DURING YOUR EMERGENCY DEPARTMENT V ISIT AND THAT YOU FEEL YOU HAVE RECEIVED EXCELLENT CARE! Referrals: KATIE RASHEED MD [Primary Care Provider] - Follow up as needed I personally performed the services described in the documentation, reviewed and edited the documentation which was dictated to the scribe in my presence, and it accurately records my words and actions.
--- NOTE | 2019-12-11 05:45 | RADIOLOGY REPORT (SQ) ---
CLINICAL HISTORY: fever COMPARISON: None. TECHNIQUE: XR CHEST 1 VIEW 12/11/2019 5:07 AM CDT FINDINGS: Cardiac silhouette is normal in size. Lungs are clear without consolidation, atelectasis, mass or edema. There is no pleural effusion. There is no pneumothorax. There are no acute osseous findings. IMPRESSION: Clear lungs.
[2019-12-11 06:11] LABS: ABSOLUTE EOSINOPHILS # (AUTO) 0.1 10^3/uL (0.0-0.6); ABSOLUTE LYMPHOCYTES (AUTO) 1.1 10^3/uL (0.5-4.7); ABSOLUTE MONOCYTES (AUTO) 0.5 10^3/uL (0.1-1.4); ABSOLUTE NEUT (AUTO) 6.7 10^3/uL (1.7-8.2); BASOPHILS % (AUTO) 0.3 % (0-2); EOSINOPHILS % (AUTO) 1.2 % (0-6); HEMATOCRIT 35.6 % (36.0-47.0); HEMOGLOBIN 12.3 g/dL (12.0-15.5); LYMPHOCYTES % (AUTO) 13.5 % (13-45); MEAN CORPUSCULAR HEMOGLOBIN 29.9 pg (27.0-33.4); MEAN CORPUSCULAR HGB CONC 34.7 g/dL (32.0-36.0); MEAN CORPUSCULAR VOLUME 86 fl (80-97); MONOCYTES % (AUTO) 5.8 % (3-13); PLATELET COUNT 226 10^3/uL (150-450); RED BLOOD COUNT 4.12 10^6/uL (3.72-5.28); SEGMENTED NEUTROPHILS % (AUTO) 79.2 % (42-78); TOTAL CELLS COUNTED % (AUTO) 100 %; WHITE BLOOD COUNT 8.4 10^3/uL (4.0-10.5)
[2019-12-11 06:37] LABS: ALBUMIN 3.4 g/dL (3.5-5.0); ALKALINE PHOSPHATASE 52 U/L (38-126); ASPARTATE AMINO TRANSFERASE 40 U/L (14-36); BILIRUBIN,TOTAL 0.4 mg/dL (0.2-1.3); BLOOD UREA NITROGEN 10 mg/dL (7-20); CALCIUM 8.5 mg/dL (8.4-10.2); CARBON DIOXIDE 28 mmol/L (22-30); GLUCOSE 123 mg/dL (75-110); POTASSIUM 4.4 mmol/L (3.6-5.0); TOTAL PROTEIN 6.5 g/dL (6.3-8.2)
[2019-12-11 06:42] LABS: CHLORIDE 105 mmol/L (98-107)
[2019-12-11 06:44] LABS: ANION GAP 3 (5-19)
[2019-12-11 07:01] LABS: APPEARANCE,URINE SLIGHTLY-CLOUDY; BILIRUBIN,URINE NEGATIVE (NEGATIVE); COLOR,URINE YELLOW; GLUCOSE, URINE NEGATIVE (NEGATIVE); KETONES,URINE NEGATIVE (NEGATIVE); LEUKOCYTE ESTERASE,URINE LARGE (NEGATIVE); NITRITE,URINE NEGATIVE (NEGATIVE); PROTEIN,URINE NEGATIVE (NEGATIVE); URINE SPECIFIC GRAVITY 1.011; UROBILINOGEN,URINE NEGATIVE mg/dL (<2.0)
[2019-12-11 07:25] LABS: URINE AMPHETAMINES SCREEN NEGATIVE; URINE BARBITURATES SCREEN NEGATIVE; URINE BENZODIAZEPINES SCREEN NEGATIVE; URINE COCAINE SCREEN NEGATIVE; URINE METHADONE SCREEN NEGATIVE; URINE PHENCYCLIDINE SCREEN NEGATIVE
[2019-12-11 07:30] LABS: URINE MARIJUANA (THC) SCREEN UNCONFIRMED POSITIVE
--- NOTE | 2019-12-11 08:18 | EKG REPORT ---
SEVERITY:- NORMAL ECG - SINUS RHYTHM : Confirmed by: Marvel Martinez 11-Dec-2019 08:18:01
[2019-12-11 08:58] VITALS: BP 105/57
== END 2019-12-11 08:59 | disposition home or self-care (01) ==
LOC: ER 02:40
DX: T40.1X1A Poisoning by heroin, accidental (unintentional), initial encounter (principal); F17.210 Nicotine dependence, cigarettes, uncomplicated; J45.909 Unspecified asthma, uncomplicated
CPT/HCPCS: 36415; 71045; 80053; 80307; 81001; 85025; 93005; 93010; 99285